=== PATIENT | male | born 1950 | race Caucasian/White ===

== ENCOUNTER 2021-01-06 22:52 | Emergency (ER) | payer OTHER ==
[~2021-01-06] VITALS: Ht 175.3 cm; Wt 81.0 kg
[2021-01-06 23:50] LABS: BASOPHILS % 0.7 % (0.0-2.0); EOSINOPHILS % 3.1 % (0.0-5.0); HEMATOCRIT. 32.2 % (42.0-52.0); HEMOGLOBIN. 10.9 g/dL (14.0-18.0); LYMPHOCYTES % 9.4 % (20.0-50.0); MEAN CORPUSCULAR HEMOGLOBIN 29.5 pg (28.0-32.0); MEAN CORPUSCULAR VOLUME 87.2 fL (80.0-94.0); MEAN PLATELET VOLUME 6.7 fl (7.4-10.4); MONOCYTES % 7.1 % (2.0-8.0); NEUTROPHILS % 79.7 % (40.0-76.0); PLATELET 316 x1000/uL (130-400); RED CELL DISTRIBUTION WIDTH 15.9 % (11.6-14.6)
[2021-01-06 23:57] LABS: CHLORIDE 108 mEq/L (98-107)
[2021-01-06 23:59] LABS: PROTHROMBIN TIME 10.9 sec (9.6-11.0)
[2021-01-07] MEDS ORDERED: PANTOPRAZOLE SODIUM 40 MG/VIAL IV ONE (01:15)
[2021-01-07] MEDS ORDERED: SODIUM CHLORIDE 0.9% 1,000 ML IV ONE (01:15)
[2021-01-07 01:30] VITALS: BP 121/54
== END 2021-01-07 01:34 | disposition home or self-care (01) ==
LOC: ER 22:52
DX: K92.2 Gastrointestinal hemorrhage, unspecified (principal); N28.9 Disorder of kidney and ureter, unspecified; I10 Essential (primary) hypertension; E78.00 Pure hypercholesterolemia, unspecified; F12.10 Cannabis abuse, uncomplicated
CPT/HCPCS: 36415; 80053; 85025; 85610; 86850; 86900; 86901; 93005; 99284; J7030

== ENCOUNTER 2024-11-03 12:08 | Emergency (ER) | payer SELFPAY ==
[~2024-11-03] VITALS: Ht 172.7 cm; Wt 75.0 kg
[2024-11-03 12:15] VITALS: O2SAT 100
[2024-11-03] MEDS: ACETAMINOPHEN 500MG TABLET PO ONE (13:51)
[2024-11-03] MEDS ORDERED: ACET-2708 MT (14:35)
[2024-11-03] MEDS: TRAMADOL 50MG TABLET PO ONE (14:46)
[2024-11-03 14:56] VITALS: BP 148/76; PULSE 77; RESP 18; TEMP 36.7; O2SAT 100
[2024-11-03] MEDS ORDERED: LIDO700A30 TP (16:09)
== END 2024-11-03 15:00 | disposition home or self-care (01) ==
LOC: ER 12:08
DX: S70.01XA Contusion of right hip, initial encounter (principal); S70.02XA Contusion of left hip, initial encounter; M16.12 Unilateral primary osteoarthritis, left hip; E11.9 Type 2 diabetes mellitus without complications; E78.00 Pure hypercholesterolemia, unspecified; I10 Essential (primary) hypertension; F12.90 Cannabis use, unspecified, uncomplicated; X58.XXXA Exposure to other specified factors, initial encounter; Y93.89 Activity, other specified; Y92.89 Other specified places as the place of occurrence of the external cause; Y99.8 Other external cause status
CPT/HCPCS: 73502; 99283